=== PATIENT | male | born 1960 | race Caucasian/White ===

== ENCOUNTER 2017-11-26 11:51 | Day surgery (SDC) | END 2017-11-26 17:12 | disposition home or self-care (01) ==

== ENCOUNTER → 2018-03-19 | Outpatient (CLI) | END | disposition home or self-care (01) ==

== ENCOUNTER 2018-05-15 07:14 | Day surgery (SDC) | END 2018-05-15 14:08 | disposition home or self-care (01) ==

== ENCOUNTER 2018-05-23 08:59 | Day surgery (SDC) | END 2018-05-23 16:05 | disposition home or self-care (01) ==